=== PATIENT | male | born 1980 | race Asian ===

== ENCOUNTER → 2018-09-21 15:46 | Outpatient (CLI) | payer OTHER, SELFPAY ==
--- NOTE | 2018-09-21 | DI.MRI.S_ITS ---
PROCEDURE: MR PELIS WO/W CON INDICATIONS: MUSCULOSKELETAL PAIN TECHNIQUE: Noncontrast coronal T1 spin echo and STIR, sagittal T1 spin echo with fat saturation and STIR, axial T1 spin echo and T2 fast spin echo with fat saturation. After the administration of contrast, axial/sagittal/coronal T1 spin echo with fat saturation through the pelvis. COMPARISON: None. FINDINGS: Image quality: Excellent. Bones: The visualized bone marrow demonstrates normal signal on all sequences. The overlying cortex appears intact. No abnormal intraosseous enhancement. Soft tissues: No soft tissue masses are visualized. The scanned muscles demonstrate normal overall bulk and internal signal. Subcutaneous tissues appear normal as well. No abnormal soft tissue enhancement. IMPRESSION: Normal examination, source of unexplained musculoskeletal pelvic pain is not seen. No inflammation is found. There is no impingement on the lumbosacral plexus bilaterally. The marrow space and vascular enhancement appears normal. Dictated by: Ahmet Oliveros M.D. on 09/21/2018 at 17:02 Approved by: Ahmet Oliveros M.D. on 09/21/2018 at 17:05
== END ==
PROVIDERS: Visit Provider Specialist/Technologist Athletic Trainer
DX: M79.18 Myalgia, other site (principal); R10.2 Pelvic and perineal pain
CPT/HCPCS: 72197; A9579

== ENCOUNTER 2024-05-06 12:25 | Day surgery (SDC) | payer OTHER, SELFPAY ==
[2024-05-06] MEDS: LACTATED RINGERS 1,000 ML 150 ML IV (12:41)
--- NOTE | 2024-05-06 12:54 | PM.HP.1 ---
History of Present Illness History of Present Illness Date Patient Seen: 05/06/24 Time Patient Seen: 12:54 Chief complaint: Colonoscopy Narrative: Dionisio is a 44 year old man who is here for his first screening colonoscopy. No known family history of colon cancer. Meds Home Medications and Allergies Home Medications Medication Instructions Recorded Confirmed Type aspirin 325 mg tablet,delayed 325 mg PO QDAY ##0 10/01/17 History release fexofenadine-pseudoephedrine ER 1 tab PO QDAY ##0 10/01/17 History 180 mg-240 mg tablet,ext.release 24 hr (Sofía-D 24 Hour) fluticasone propionate 50 1 spray intranasal QDAY ##0 10/01/17 History mcg/actuation nasal spray,suspension (Flonase Allergy Relief) sodium,potassium,mag sulfates 17.5 See Rx Instructions PO .COMPLEX 03/26/24 Rx gram-3.13 gram-1.6 gram oral soln #354 mL (Suprep Bowel Prep Kit) metformin 500 mg tablet,extended 500 mg PO BID 05/06/24 05/06/24 History release 24 hr Allergies Allergy/AdvReac Type Severity Reaction Status Date / Time Penicillins [PENICILLINS] Allergy Unknown REACTION Verified 05/06/24 12:52 NOT LISTED Exam Const General: No acute distress Resp Effort & Inspection: normal respiratory effort Assessment & Plan Assessment and plan (1) Colon cancer screening: Status: Acute Plan We reviewed the risks and benefits of colonoscopy for colon cancer screening and he would like to proceed. Time-Based Coding :: [TOTAL MINUTES] spent with patient and on the chart (including review of chart, obtaining history, exam, reviewing outside data, placing orders, documenting exam and treatment plan, and counseling patient) on [DATE].
[2024-05-06 13:06] VITALS: BP 125/84; PULSE 73; RESP 14; TEMP 36.3; O2SAT 99
[2024-05-06 13:40] VITALS: BP 97/65; PULSE 76; RESP 12; TEMP 36.7; O2SAT 95
--- NOTE | 2024-05-06 13:41 | PM.OP.COLON ---
Operative Date/Time/Diagnoses Date of procedure: 05/06/24 Time of procedure: 13:41 Pre-op diagnosis: Colon cancer screening Post-op diagnosis: same Procedure & Clinicians Study performed: Colonoscopy Same procedure as scheduled: Yes Surgeon: Rufino Cartwright Procedure Notes Procedure in detail: Surgeon: Rufino Cartwright MD Anesthesia: Cony Huff CRNA Procedure: The patient was brought to the endoscopy suite, placed in left lateral decubitus position. The patient was connected to monitoring devices. A time-out was performed. Sedation was administered. Once the patient was adequately sedated, a digital rectal exam was performed and was normal. The scope was then inserted and advanced to the cecum where the appendiceal orifice was identified and photographed. The scope was then slowly withdrawn over greater than 6 minutes. The mucosa was thoroughly inspected. No abnormalities were identified. The scope was retroflexed in the rectum. No abnormalities were identified. The scope was straightened and removed. The patient was awakened and brought to recovery. Scope withdrawal time: 7 minutes Sedation time: 13 minutes EBL: 0 Findings: Normal colon Post-procedure Recommendations: Colonoscopy in 10 years Disposition: PACU
[2024-05-06 13:46] VITALS: BP 100/65; PULSE 76; RESP 13; TEMP 36.7; O2SAT 95
[2024-05-06 13:52] VITALS: BP 105/61; PULSE 72; RESP 12; TEMP 36.7; O2SAT 96
[2024-05-06 13:56] VITALS: BP 110/70; PULSE 75; RESP 14; O2SAT 99
== END 2024-05-06 14:11 | disposition home or self-care (01) ==
PROVIDERS: Referring Provider Surgery; Visit Provider Surgery
PROC: 0DJD8ZZ Inspection of Lower Intestinal Tract, Via Natural or Artificial Opening Endoscopic (ICD-10-PCS; CPT 45378; principal; 2024-05-06 13:45)
DX: Z12.11 Encounter for screening for malignant neoplasm of colon (principal)
CPT/HCPCS: 45378; J2704